=== PATIENT | female | born 1945 | race Caucasian/White ===

== ENCOUNTER 2018-06-16 16:39 | Inpatient (IN) | payer MEDICARE ==
[2018-06-16] MEDS ORDERED: MORPHINE SULFATE 4 MG/ML SYRINGE IVP STA (17:24)
--- NOTE | 2018-06-16 17:37 | ED ---
General Adult HPI <Cj Goldstein - Last Filed: 06/16/18 19:06> - General Source: patient, EMS, RN notes reviewed Mode of arrival: EMS Limitations: no limitations <Eliud Farah - Last Filed: 06/16/18 19:50> - General Chief complaint: Extremity Injury, Lower Stated complaint: FALL Time Seen by Provider: 06/16/18 16:41 - History of Present Illness Initial comments: With a past medical history of asthma, right hip fracture, right bundle branch block presents to the emergency department for a chief complaint of left hip pain 1 hour. Patient states she was walking her dog when her dog took off after another dog. She states she was pulled down onto her left side. Patient states she immediately felt pain in the left hip. She states she is unable to move the hip. She was unable to ambulate.Patient has no other complaints at this time including shortness of breath, chest pain, abdominal pain, nausea or vomiting, headache, or visual changes. (Eliud Farah) - Related Data Home Medications Medication Instructions Recorded Confirmed Ibuprofen [Motrin] 600 mg PO DAILY PRN 01/11/15 06/16/18 Multivitamins, Thera [Multivitamin 1 tab PO DAILY 01/11/15 06/16/18 (formulary)] Pseudoephedrine HCl [Sudafed] 30 mg PO DAILY 06/16/18 06/16/18 Allergies Allergy/AdvReac Type Severity Reaction Status Date / Time levofloxacin [From Levaquin] Allergy Itching Verified 06/16/18 17:05 Penicillins Allergy Swelling Verified 06/16/18 17:05 Sulfa (Sulfonamide Allergy Itching Verified 06/16/18 17:05 Antibiotics) Review of Systems ROS Other: All systems not noted in ROS Statement are negative. <Cj Goldstein - Last Filed: 06/16/18 19:06> ROS Other: All systems not noted in ROS Statement are negative. <Eliud Farah - Last Filed: 06/16/18 19:50> ROS Statement: Those systems with pertinent positive or pertinent negative responses have been documented in the HPI. Past Medical History Past Medical History: Asthma, Osteoarthritis (OA), Pneumonia Additional Past Medical History / Comment(s): ECZEMA, RT HIP FX, SCIATICA, HAYFEVER, MONO 1964, HEMRRHOIDS, Right bundle branch block History of Any Multi-Drug Resistant Organisms: None Reported Past Surgical History: Hernia Repair, Tonsillectomy Additional Past Surgical History / Comment(s): 5 surgeries on right eye( CATARACT AND MACULAR HOLE/DETATCHED RETINA), right hip RECONSTRUCTION W/ PINS , D&C, COLONOSCOPY IN 2006 [email or web address] INGUINAL HERNIA REPAIR/ Past Anesthesia/Blood Transfusion Reactions: No Reported Reaction Past Psychological History: No Psychological Hx Reported Smoking Status: Former smoker Past Alcohol Use History: Occasional Past Drug Use History: None Reported - Past Family History Father Additional Family Medical History / Comment(s): RENAL CELL CA Mother Additional Family Medical History / Comment(s): VASCULAR PROBLEMS <Eliud Farah P - Last Filed: 06/16/18 19:50> General Exam Limitations: no limitations General appearance: alert, in no apparent distress Head exam: Present: atraumatic, normocephalic, normal inspection Eye exam: Present: normal appearance, PERRL, EOMI. Absent: scleral icterus, conjunctival injection, periorbital swelling ENT exam: Present: normal exam, mucous membranes moist Neck exam: Present: normal inspection, full ROM. Absent: tenderness, meningismus, lymphadenopathy Respiratory exam: Present: normal lung sounds bilaterally. Absent: respiratory distress, wheezes, rales, rhonchi, stridor Cardiovascular Exam: Present: regular rate, normal rhythm, normal heart sounds. Absent: systolic murmur, diastolic murmur, rubs, gallop, clicks Extremities exam: Present: tenderness (Mild tenderness noted to the lateral left hip), normal capillary refill (Abler refill less than 2 seconds and DP pulse 2+ in the left lower extremity), other (The patient intact in the left lower extremity, deformity noted to the left lateral hip. external rotation of left leg noted). Absent: full ROM (Unable to move left hip) <Eliud Farah - Last Filed: 06/16/18 19:50> Course <Cj Goldstein - Last Filed: 06/16/18 19:06> <Eliud Farah P - Last Filed: 06/16/18 19:50> Vital Signs 06/16/18 06/16/18 06/16/18 16:48 18:00 19:07 Temperature 98.8 F Pulse Rate 69 84 Respiratory 20 18 18 Rate Blood Pressure 141/104 133/73 130/80 O2 Sat by Pulse 97 96 97 Oximetry - Reevaluation(s) Reevaluation #1: 06/16/18 19:06 Patient reevaluated by myself, Dr. Goldstein. Patient states she was walking results which is pulled down and landed on her left hip. Patient states she is normally healthy. Patient is updated on results and plan. Distally extremities are neurovascularly intact. Pulses intact. Case was discussed in detail with Dr. Foster, who will admit with likely surgical repair on Thursday. ( Cj Goldstein) EKG Findings - EKG Comments: EKG Findings:: EKG shows a normal sinus rhythm, ventricular rate 60, MT interval 156, QTC 438, evidence of right bundle-branch block which is chronic. <Eliud Farah - Last Filed: 06/16/18 19:50> Medical Decision Making - Lab Data Result diagrams: 06/16/18 17:54 06/16/18 17:54 <Cj Goldstein - Last Filed: 06/16/18 19:06> - Lab Data Result diagrams: 06/16/18 17:54 06/16/18 17:54 <Eliud Farah - Last Filed: 06/16/18 19:50> - Medical Decision Making 72-year-old female brought to the emergency department for a chief complaint of left hip pain after falling today. Patient states she cannot move the hip nor bear weight on it. Patient initially hypertensive on presentation although after pain controlled with pressure 130/80. On exam patient refuses to move hip. She does have a deformity noted. External rotation noted to the lower extremity. Tenderness to the lateral hip. Neurovascular intact with capillary refill less than 2 seconds in DP pulse 2+ the left lower extremity. Basic labs were ordered. CBC and CMP are unremarkable. EKG shows a right bundle branch block which is chronic. X-ray of the left hip shows an acute intertrochanteric fracture with mild coccyx severity deformity. Chest x-ray shows no active cardiopulmonary disease. Patient's pain currently controlled with morphine and Dilaudid. Dilaudid will be continued on the floor. Patient will be admitted to [facility] who accepts the admission. Medicine will be consulted. (Eliud Farah) - Lab Data Lab Results 06/16/18 06/16/18 Range/Units 17:54 17:54 WBC 8.0 (3.8-10.6) k/uL RBC 4.16 (3.80-5.40) m/uL Hgb 13.3 (11.4-16.0) gm/dL Hct 40.0 (34.0-46.0) % MCV 96.1 (80.0-100.0) fL MCH 32.0 (25.0-35.0) pg MCHC 33.3 (31.0-37.0) g/dL RDW 12.3 (11.5-15.5) % Plt Count 212 (150-450) k/uL Neutrophils % 81 % Lymphocytes % 13 % Monocytes % 3 % Eosinophils % 2 % Basophils % 1 % Neutrophils # 6.4 (1.3-7.7) k/uL Lymphocytes # 1.0 (1.0-4.8) k/uL Monocytes # 0.3 (0-1.0) k/uL Eosinophils # 0.1 (0-0.7) k/uL Basophils # 0.1 (0-0.2) k/uL Sodium 142 (137-145) mmol/L Potassium 4.1 (3.5-5.1) mmol/L Chloride 108 H (98-107) mmol/L Carbon Dioxide 26 (22-30) mmol/L Anion Gap 8 mmol/L BUN 25 H (7-17) mg/dL Creatinine 0.77 (0.52-1.04) mg/dL Est GFR (CKD-EPI)AfAm 90 (>60 ml/min/1.73 sqM) Est GFR (CKD-EPI)NonAf 78 (>60 ml/min/1.73 sqM) Glucose 107 H (74-99) mg/dL Calcium 9.2 (8.4-10.2) mg/dL Total Bilirubin 0.5 (0.2-1.3) mg/dL AST 28 (14-36) U/L ALT 32 (9-52) U/L Alkaline Phosphatase 52 (38-126) U/L Total Protein 6.4 (6.3-8.2) g/dL Albumin 3.9 (3.5-5.0) g/dL Disposition <Cj Goldstein - Last Filed: 12/05/18 19:06> Is patient prescribed a controlled substance at d/c from ED?: No Time of Disposition: 19:35 <Eliud Farah P - Last Filed: 06/16/18 19:50> Clinical Impression: Hip fracture, left Disposition: ADMITTED IP TO THIS HOSP Condition: Good
[2018-06-16 18:10] LABS: Basophils # (A) 0.1 k/uL (0-0.2); Basophils % (A) 1 %; Eosinophils # (A) 0.1 k/uL (0-0.7); Eosinophils % (A) 2 %; HGB 13.3 gm/dL (11.4-16.0); Lymphocytes % (A) 13 %; MCHC 33.3 g/dL (31.0-37.0); MCV 96.1 fL (80.0-100.0); Mean Platelet Volume 7.5; Monocytes # (A) 0.3 k/uL (0-1.0); Monocytes % (A) 3 %; Neutrophils # (A) 6.4 k/uL (1.3-7.7); Neutrophils % (A) 81 %; Platelet Count 212 k/uL (150-450); RBC 4.16 m/uL (3.80-5.40); RDW 12.3 % (11.5-15.5)
[2018-06-16 18:20] LABS: Albumin 3.9 g/dL (3.5-5.0); Calcium 9.2 mg/dL (8.4-10.2); Potassium 4.1 mmol/L (3.5-5.1); Total Bilirubin 0.5 mg/dL (0.2-1.3); Total Protein 6.4 g/dL (6.3-8.2)
[2018-06-16] MEDS ORDERED: HYDROmorphone 1 MG/ML 1 ML SYRINGE IVP STA (18:45)
[2018-06-16] MEDS ORDERED: ACETAMINOPHEN TAB 325 MG TAB PO PRN (19:36)
[2018-06-16] MEDS ORDERED: NALOXONE 0.4 MG/ML 1 ML VIAL IV PRN (19:36)
[2018-06-16] MEDS ORDERED: SODIUM CHLORIDE 0.9% 1,000 ML IV STA (19:40)
--- NOTE | 2018-06-16 19:40 | XR ---
EXAMINATION TYPE: XR Hip LT and AP Pelvis DATE OF EXAM: 06/16/2018 COMPARISON: NONE HISTORY: Hip pain TECHNIQUE: A single AP view of the pelvis is obtained. Two views of the left hip are obtained. FINDINGS: The of the great is intact. There is a right hip nailing noted. There is an acute intertroc hanteric fracture of the left femur with mild coxa vera deformity. There is no dislocation. IMPRESSION: Acute intertrochanteric fracture left femur.
--- NOTE | 2018-06-16 19:41 | XR ---
EXAMINATION TYPE: XR chest 1V DATE OF EXAM: 06/16/2018 COMPARISON: 01/17/2015 HISTORY: Chest pain TECHNIQUE: Single frontal view of the chest is obtained. FINDINGS: There is no heart failure nor confluent pneumonic infiltrate. Costophrenic angles are mynor r. Bony thorax is intact. Heart size is fairly normal. IMPRESSION: No active cardiopulmonary disease. Normal heart. No change.
[2018-06-16] MEDS: HYDROmorphone 1 MG/ML 1 ML SYRINGE IVP PRN (22:21)
--- NOTE | 2018-06-16 23:45 | CONS ---
CONSULTATION DATE OF CONSULTATION: 06/16/2018 REASON FOR CONSULTATION: Medical management, requested by Dr. Foster. CONSULTATION: This is a very pleasant 72-year-old patient of Dr. Burgos. Chronic stable medical conditions include right bundle branch block, osteoarthritis, asthma and sciatica. The patient was walking her dog when the dog suddenly decided to dart off. As a result, the patient fell on her left hip, had pain immediately. She was brought into the ER and was confirmed to have a left hip fracture. Patient is otherwise in good health, rather active. The patient did have a cardiac catheterization back in 2014 that was negative for coronary artery disease. No chest pain or shortness of breath. Really otherwise healthy. Lying in bed. Some pain in the left hip. REVIEW OF SYSTEMS: CONSTITUTIONAL: None. HEENT: None. RESPIRATORY: None. CARDIOVASCULAR: None. GASTROINTESTINAL: None. GENITOURINARY: None. MUSCULOSKELETAL: Pain in the left hip and other joints. DERMATOLOGICAL: None. HEMATOLOGIC: None. LYMPHATIC: None. PSYCHIATRY: None. NEUROLOGICAL: None. PAST MEDICAL HISTORY: 1. Asthma. 2. Osteoarthritis. 3. Eczema. 4. Infectious mononucleosis. 5. Hemorrhoids. 6. Right bundle branch block. PAST SURGICAL HISTORY: 1. Hernia repair. 2. Tonsillectomy. 3. Surgeries in the right eye for a cataract and macular hole, detached retina. 4. Right hip reconstruction with pins. 5. Left inguinal hernia repair. SOCIAL HISTORY: No smoking. Occasional alcohol. . 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 FAMILY HISTORY: Renal cell carcinoma. HOME MEDICATIONS: 1. Sudafed 30 mg a day. 2. Multivitamin tablet 1 p.o. daily. 3. Motrin 600 mg daily p.r.n. ALLERGIES: 1. LEVAQUIN. 2. PENICILLIN. 3. SULFA. PHYSICAL EXAMINATION: Temperature 98.4, pulse 64, respiration 12, blood pressure 124/72, pulse ox 96% on room air. GENERAL APPEARANCE: Average build. Lying in bed, comfortable. EYES: Pupils equal. Conjunctivae normal. HEENT: External appearance of nose and ears normal. Oral cavity normal. NECK: JVD not raised. Mass not palpable. RESPIRATORY: Effort normal. Lungs are clear. CARDIOVASCULAR: First and second sounds normal. No edema. ABDOMEN: Soft, non-tender. Liver and spleen not palpable. LYMPHATIC: No lymph node palpable in neck or axillae. PSYCHIATRY: Alert and oriented x3. Mood and affect normal. NEUROLOGICAL: Pupils equal. Cranial nerves grossly intact. Power and sensation grossly intact. MUSCULOSKELETAL: Evidence of osteoarthritis, especially in the hands. Limited range of motion of the left hip. INVESTIGATIONS: White count 8, hemoglobin 13.3, potassium 4.1, BUN 25, creatinine 0.77. EKG tracing, personally reviewed by me, shows right bundle branch block. Chest x-ray film, personally reviewed by me, shows some hyperinflation; no obvious infiltrate. Also the report was reviewed. Hip/pelvic x-ray shows left femur IT fracture. ASSESSMENT: 1. Left femur intertrochanteric fracture secondary to fall. 2. Intermittent asthma, stable. 3. Primary osteoarthritis in multiple joints, stable. 4. Chronic right bundle branch block. 5. Chronic sciatica. PLAN: From a cardiovascular standpoint, patient has good exercise tolerance; negative cardiac cath in 2015. Not much change in exercise tolerance. Has no chest pain or shortness of breath. Has a low risk for surgery. Will give patient Lovenox for DVT prophylaxis. Care was discussed with the patient. Questions were answered. Thank you, Dr. Foster. MMARTUROL / IJN: [id number] /
[2018-06-17] MEDS: HYDROmorphone 1 MG/ML 1 ML SYRINGE IVP PRN ×6 (02:35→23:07)
[2018-06-17] MEDS: ENOXAPARIN 40 MG/0.4 ML SYRINGE SQ SCH (08:39)
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
[2018-06-17] MEDS ORDERED: HYDROmorphone 1 MG/ML 1 ML SYRINGE IVP PRN ×2 (13:10→14:36)
[2018-06-17] MEDS: HYDROcodone/APAP 5-325MG 1 EACH TAB PO PRN ×2 (13:17→20:10)
--- NOTE | 2018-06-17 22:23 | PN ---
PROGRESS NOTE DATE OF SERVICE: 06/17/2018 PRESENTING COMPLAINT: Left femur fracture. INTERVAL HISTORY: This is a patient with left femur fracture secondary to a fall. Pain is controlled. Awaiting surgery. No new issues. Breathing is stable. Lying in bed. REVIEW OF SYSTEMS: Done for constitutional, cardiovascular, GI, pulmonary, musculoskeletal; relevant findings as above. CURRENT MEDICATIONS: Reviewed. PHYSICAL EXAMINATION: Temperature 98.3, pulse 60, respiration 16, blood pressure 107/64, pulse ox 96% on room air. GENERAL APPEARANCE: Lying in bed, comfortable. EYES: Pupils equal. Conjunctivae normal. NECK: JVD not raised. Mass not palpable. RESPIRATORY: Effort normal. Lungs are clear. CARDIOVASCULAR: First and second sounds normal. No edema. ABDOMEN: Soft, non-tender. Liver and spleen not palpable. PSYCHIATRY: Alert and oriented x3. Mood and affect normal. INVESTIGATIONS: No blood work from today. ASSESSMENT: 1. Left femur intertrochanteric fracture secondary to fall. 2. Intermittent asthma, stable. 3. Primary osteoarthritis of multiple joints, stable. 4. Right bundle branch block. 5. Chronic sciatica. PLAN: Care was discussed with the patient. Patient is medically stable to proceed with surgery. Will follow. MMODL / IJN: [id number] /
[2018-06-18] MEDS: HYDROmorphone 1 MG/ML 1 ML SYRINGE IVP PRN ×4 (04:11→21:07)
[2018-06-18] MEDS: HYDROcodone/APAP 5-325MG 1 EACH TAB PO PRN ×2 (07:42→18:12)
[2018-06-18] MEDS: ENOXAPARIN 40 MG/0.4 ML SYRINGE SQ SCH (07:43)
[2018-06-18] MEDS ORDERED: IV FLUID CONTINUATION 800 ML IV ONE (10:48)
[2018-06-18] MEDS ORDERED: ceFAZolin IN SWFI 2 GM/20 ML SYRINGE IVP ONE (11:00)
[2018-06-18] MEDS ORDERED: ceFAZolin 2 GM in SODIUM CHLORIDE 0.9% 100 ML IVPB ONE (11:00)
[2018-06-18] MEDS ORDERED: MIDAZOLAM 2 MG/2 ML VIAL ONE (12:15)
[2018-06-18] MEDS ORDERED: fentaNYL (PF) 50 MCG/ML 2 ML AMP ONE (12:15)
[2018-06-18] MEDS ORDERED: ePHEDrine SULFATE/0.9% NACL/PF 50 MG/5 ML SYRINGE IV ONE (12:15)
[2018-06-18] MEDS ORDERED: KETAMINE 10 MG/ML 20 ML VIAL ONE (12:15)
[2018-06-18] MEDS ORDERED: CLINDAMYCIN 600 MG in SODIUM CHLORIDE 0.9% 1,000 ML IRRIGATION ONE (12:56)
--- NOTE | 2018-06-18 13:23 | P.OP ---
Date of Procedure: 06/18/18 Procedure(s) Performed: PREOPERATIVE DIAGNOSIS: Left hip intertrochanteric fracture. POSTOPERATIVE DIAGNOSIS: Left hip intertrochanteric fracture. OPERATION: Left hip intertrochanteric fracture closed reduction and intramedullary nailing using Synthes IT nail. GARMENT TAG STRINGER: Sydnie Marion (Assistance with: Patient positioning, retraction, exposure, hemostasis, fixation, irrigation, closure, dressing) ANESTHESIA: Spinal ESTIMATED BLOOD LOSS: 50 mL. COMPLICATIONS: None OPERATIVE FINDINGS: See dictation INDICATIONS: Mrs. Goldstein is a 72-year-old female with a history of left intertrochanteric fracture. The patient presents to the operating room today for closed reduction and intramedullary nailing. I discussed the risks of surgery in detail as being inclusive of but not limited to: Bleeding, infection , scarring, discomfort, blood vessel and/or nerve damage, need for further surgery, malunion, nonunion, gait disturbance including persistent or permanent limp, limb length inequality, arthritis, hardware failure, blood clot, pulmonary embolism, , and other risks. The consent form has been signed. PROCEDURE: After appropriate consent was obtained, the patient was taken to the operating room and placed in supine position. Spinal anesthetic was administered and after confirmation of adequate anesthesia, the patient was carefully placed in the supine position on the operating room table in the fracture table. The patient was placed up against a well-padded peroneal post. Care was taken to make sure about that all pressure points were adequately padded. The affected leg was placed in boot traction and the unaffected leg was placed in a well leg baeza. Using gentle longitudinal distraction as well as adduction and internal rotation, the fracture was reduced as assessed by AP and lateral C-arm imaging. Once a satisfactory reduction had been obtained, the thigh was prepped and draped in the usual aseptic fashion using ChloraPrep. Ioban drape was used for the case and the patient received intravenous antibiotics prior to incision. Timeout was called, confirming patient identity, side, procedure, and administration of antibiotics. The incision was then created with a #10 blade just proximal to the greater trochanter laterally. It was carried down through skin into the subcutaneous tissues and through fascia. Hemostasis was obtained using electrocautery. The tip of the greater trochanter was palpated and a guide pin was placed at the tip and directed into the femoral shaft as assessed with C-arm imaging. Once optimal pin position had been obtained, a 17 mm reamer was used over the guide pin to create a path for the IT nail. IT nail selected was assembled to the insertion jig on the back table and bushings were checked for accuracy. The nail was then inserted using gentle mallet taps until it was fully deployed. The amount of rotation of the implant was assessed based on the amount of anteversion of the femoral neck. This was rotated to match the patient's femoral neck anteversion and the helical blade guide was placed through the insertion jig and through an incision on the lateral side of the thigh more distal than the first. Once this guide was placed against the lateral cortex of the femur, a guide pin was drilled into the central region of the femoral head and neck as based on AP and lateral C-arm imaging. Once optimal pin position had been obtained, the guidewire was measured and appropriately sized helical blade was selected. The path for the helical blade was prepared using a tapered reamer. The helical blade was then inserted using gentle mallet taps along the guidewire until it was fully deployed. There was no displacement of the fracture during this step. The anti-rotation screw was locked down and the insertion apparatus for the helical blade was removed. The guide pin was then removed. Traction was then removed from the leg and the distal interlock was placed through the jig using standard technique. Finally, the insertion jig for the nail was removed and final C-arm images were taken and saved in both AP and lateral planes. The final x-rays showed satisfactory positioning of the implant and good reduction of the fracture. The top of the nail was plugged with a small quantity of bone wax and the incisions were then thoroughly irrigated with normal saline. Final hemostasis was obtained using electrocautery and closure of the fascia was performed using 0-Vicryl suture. 2-0 Vicryl suture was used in the subcutaneous tissues and michelle were used for the skin. Sterile dressing was then applied and the patient was carefully removed from the fracture table frame and placed onto the stretcher. The patient tolerated the procedure well. There were no complications and 50 of blood loss. The patient was then subsequently transferred to recovery room in stable condition. Sponge and needle counts were correct.
[2018-06-18] MEDS ORDERED: NALOXONE 0.4 MG/ML 1 ML VIAL IV PRN (13:49)
[2018-06-18] MEDS ORDERED: HYDROmorphone 1 MG/ML 1 ML SYRINGE IVP PRN ×3 (13:49)
[2018-06-18] MEDS ORDERED: HYDROcodone/APAP 5-325MG 1 EACH TAB PO PRN (13:49)
[2018-06-18] MEDS ORDERED: MAGNESIUM HYDROXIDE 2,400 MG/10 ML CUP PO PRN (13:49)
[2018-06-18] MEDS ORDERED: ONDANSETRON 4 MG/2 ML VIAL IVP PRN (13:49)
--- NOTE | 2018-06-18 14:15 | XR ---
EXAMINATION TYPE: XR shoulder limited LT DATE OF EXAM: 06/18/2018 CLINICAL HISTORY: Left shoulder pain after injury TECHNIQUE: 2 views of the left shoulder are obtained. COMPARISON: None. FINDINGS: There is mild generalized osseous mineralization. There is no acute fracture/dislocation e vident in the left shoulder. The acromioclavicular and glenohumeral joint spaces demonstrate mild ar thropathy of both joints. The visualized ribs are intact and unremarkable. IMPRESSION: There is no acute fracture or dislocation in the left shoulder.
--- NOTE | 2018-06-18 14:26 | XR ---
EXAMINATION TYPE: XR Hip Complete LT DATE OF EXAM: 06/18/2018 COMPARISON: NONE HISTORY: Postsurgical TECHNIQUE: One view submitted. FINDINGS: There is postsurgical change in near anatomic alignment. There is soft tissue edema and emphysema. IMPRESSION: 1. Postoperative change. Appears in near-anatomic alignment.
[2018-06-18] MEDS: LACTATED RINGERS 1,000 ML IV SCH (14:37)
--- NOTE | 2018-06-18 14:40 | FL ---
EXAMINATION TYPE: FL guidance operating room DATE OF EXAM: 06/18/2018 HISTORY: Flouroscopy time 23 seconds of fluoroscopy provided. IMPRESSION: 1. Fluoroscopy time.
[2018-06-18 16:28] LABS: Basophils % (A) 0 %; Eosinophils # (A) 0.1 k/uL (0-0.7); Eosinophils % (A) 1 %; HCT 38.3 % (34.0-46.0); HGB 12.6 gm/dL (11.4-16.0); Lymphocytes # (A) 1.1 k/uL (1.0-4.8); Lymphocytes % (A) 13 %; MCH 32.2 pg (25.0-35.0); MCHC 32.8 g/dL (31.0-37.0); MCV 98.1 fL (80.0-100.0); Mean Platelet Volume 7.4; Monocytes # (A) 0.4 k/uL (0-1.0); Monocytes % (A) 5 %; Neutrophils # (A) 6.9 k/uL (1.3-7.7); Neutrophils % (A) 80 %; Platelet Count 173 k/uL (150-450); RDW 12.2 % (11.5-15.5); WBC 8.6 k/uL (3.8-10.6)
[2018-06-18] MEDS: SENNOSIDES-DOCUSATE SODIUM 1 EACH TAB PO SCH (21:04)
[2018-06-18] MEDS: ceFAZolin IN SWFI 2 GM/20 ML SYRINGE IVP SCH (21:25)
[2018-06-18] MEDS ORDERED: TEMAZEPAM 15 MG CAP PO PRN (22:00)
[2018-06-19] MEDS: HYDROcodone/APAP 5-325MG 1 EACH TAB PO PRN ×4 (00:24→20:21)
[2018-06-19] MEDS: LACTATED RINGERS 1,000 ML IV SCH ×3 (00:26→21:46)
--- NOTE | 2018-06-19 00:27 | PN ---
PROGRESS NOTE DATE OF SERVICE: 06/18/2018 PRESENTING COMPLAINT: Left femur fracture. INTERVAL HISTORY: The patient with a fall with left femur fracture, underwent IM nailing today. Post procedure some pain is present. No nausea, vomiting. Lying in bed. Did have a light meal. No chest pain or short of breath. REVIEW OF SYSTEMS: Done for constitutional, cardiovascular, GI, pulmonary, musculoskeletal and relevant findings as above. CURRENT MEDICATIONS: Reviewed that include IV Ancef, lactated Ringer's, Xarelto. PHYSICAL EXAMINATION: VITAL SIGNS: Temperature 98.7, pulse 72, respirations 16, blood pressure 125/73, pulse ox 99 percent on room air. GENERAL APPEARANCE: Lying in bed, tired. EYES: Pupils equal. Conjunctivae normal. NECK: JVD not raised. Mass not palpable. RESPIRATORY: Effort normal. LUNGS are clear. CARDIOVASCULAR: 1st and 2nd sounds normal. No edema. ABDOMEN: Soft, nontender. Liver and spleen not palpable. PSYCHIATRY: Alert and oriented times three. Mood and affect normal. Dressing over the left hip. INVESTIGATIONS: White count 8.6, hemoglobin 12.6. ASSESSMENT: 1. Left femur IT fracture secondary to fall followed by IM nailing. 2. Intermittent asthma, stable. 3. Primary osteoarthritis, multiple joints, stable. 4. Right bundle branch block. 5. Chronic sciatica. PLAN: The patient is on Xarelto for DVT prophylaxis, IV fluids. Other medications to continue. Care was discussed with the patient. Thank you Dr. Foster. MMODL / IJN: [id number] /
[2018-06-19] MEDS: HYDROmorphone 1 MG/ML 1 ML SYRINGE IVP PRN ×4 (02:27→21:38)
[2018-06-19] MEDS: ceFAZolin IN SWFI 2 GM/20 ML SYRINGE IVP SCH (05:40)
--- NOTE | 2018-06-19 09:45 | P.PN ---
Subjective Progress Note Date: 06/19/18 Principal diagnosis: Status post IT nail left hip This is a 72 year-old female post left hip IT nail. This is post-op day 1. The patient was evaluated at the bedside today. The patient denies nausea, vomiting, abdominal pain, shortness of breath, and chest pain this morning. She states her pain is controlled at this time. The patient has not been up with physical therapy. Objective - Vital Signs Vital signs: Vital Signs Temp 98.4 F 06/19/18 08:26 Pulse 79 06/19/18 08:26 Resp 16 06/19/18 08:26 BP 105/66 06/19/18 08:26 Pulse Ox 96 06/19/18 08:26 Intake & Output 06/18/18 06/19/18 06/19/18 18:59 06:59 18:59 Intake Total 1021 1600 222 Output Total 600 1700 Balance 421 -100 222 Intake: IV 701 Intake, IV Titration 1600 Amount Lactated Ringers 1,000 ml 1600 @ 100 mls/hr IV .Q10H [facility] Rx#:[id number] Oral 320 222 Output: Urine 550 1700 Estimated Blood Loss 50 Other: Voiding Method Indwelling Catheter Indwelling Catheter - Exam The patient does not appear in acute distress. Alert and orientated x3. Dressing is clean dry and intact. Incision appears fine with no erythema or active drainage. Calf is soft and nontender. Good foot and ankle motion without difficulty. Sensation and circulatory status is intact. - Labs CBC & Chem 7: 06/18/18 16:10 06/16/18 17:54 Assessment and Plan (1) Status post hip surgery Current Visit: Yes Status: Acute Code(s): Z98.890 - OTHER SPECIFIED POSTPROCEDURAL STATES SNOMED Code(s): 938487357 (2) Intertrochanteric fracture of left hip Current Visit: Yes Status: Acute Code(s): S72.142A - DISPLACED INTERTROCHANTERIC FRACTURE OF LEFT FEMUR, INIT SNOMED Code(s): 457833239 (3) Status post fall Current Visit: Yes Status: Acute Code(s): Z91.81 - HISTORY OF FALLING SNOMED Code(s): 864790826 Plan: 1. Continue pain control 2. Anticoagulation with Xarelto 3. Start physical therapy and ambulation 4. Anticipate discharge home in the next 1-2 days depending on ambulation status.
[2018-06-19] MEDS: RIVAROXABAN 10 MG TAB PO SCH (10:01)
[2018-06-19] MEDS ORDERED: POLYETHYLENE GLYCOL 3350 17 GM POWD.PACK PO PRN (11:42)
--- NOTE | 2018-06-19 12:43 | P.PN ---
Subjective Progress Note Date: 06/19/18 Principal diagnosis: Left femur fracture Mr. Goldstein is a 72-year-old female with the past medical history of asthma, osteoarthritis, chronic sciatica admitted for left femur fracture after having a fall. Patient went IM nailing done yesterday. And she is postop day 1 today. Patient is lying in bed comfortably. No acute overnight events reported by nursing staff. On review of systems- Constitutional - denies having any fevers chills or rigors Cardiovascular - no chest pain or palpitations Respiratory - no difficulty in breathing or cough GI - reports constipation, she did not have a bowel movement for the past 4 days - patient still has Ontiveros's catheter in place Objective - Vital Signs Vital signs: Vital Signs Temp 98.4 F 06/19/18 08:26 Pulse 79 06/19/18 08:26 Resp 16 06/19/18 08:26 BP 105/66 06/19/18 08:26 Pulse Ox 96 06/19/18 08:26 Intake & Output 06/18/18 06/19/18 06/19/18 18:59 06:59 18:59 Intake Total 1021 1600 222 Output Total 600 1700 720 Balance 421 -100 -498 Intake: IV 701 Intake, IV Titration 1600 Amount Lactated Ringers 1,000 ml 1600 @ 100 mls/hr IV .Q10H [facility] Rx#:[id number] Oral 320 222 Output: Urine 550 1700 720 Estimated Blood Loss 50 Other: Voiding Method Indwelling Catheter Indwelling Catheter Indwelling Catheter - Exam Gen. appearance-sitting up in the chair by the bedside Eyes-pupils equal conjunctivae no pallor Neck - no JVD, no palpable masses Respiratory-bilateral breath sounds are positive slightly decreased at the lower lung bases [id number] heard nausea and sounds GI-abdomen is soft, nontender. No organomegaly. Bowel sounds hypoactive. Extremities-no edema - Labs CBC & Chem 7: 06/18/18 16:10 06/16/18 17:54 Assessment and Plan Assessment: ASSESSMENT Left femur fracture-status post IM nailing-postop day 1 Mild intermittent asthma Primary osteoarthritis of multiple joints Right bundle-branch block Chronic sciatica Plan: Patient is undergoing physical therapy as per primary care team management. Pain is under good control with Dilaudid. She is on DVT prophylaxis etc. as the patient has constipation, we will add MiraLAX. Encouraged to continue with incentive spirometry. Thank you Dr. Foster.
[2018-06-19] MEDS: SENNOSIDES-DOCUSATE SODIUM 1 EACH TAB PO SCH (20:23)
[2018-06-20] MEDS: HYDROcodone/APAP 5-325MG 1 EACH TAB PO PRN ×4 (03:52→22:05)
[2018-06-20] MEDS: LACTATED RINGERS 1,000 ML IV SCH ×2 (05:04→19:23)
[2018-06-20 07:25] LABS: Basophils % (A) 0 %; Eosinophils # (A) 0.2 k/uL (0-0.7); Eosinophils % (A) 4 %; HCT 35.7 % (34.0-46.0); HGB 11.8 gm/dL (11.4-16.0); Lymphocytes # (A) 0.8 k/uL (1.0-4.8); Lymphocytes % (A) 14 %; MCH 31.8 pg (25.0-35.0); MCV 96.1 fL (80.0-100.0); Mean Platelet Volume 7.5; Monocytes # (A) 0.4 k/uL (0-1.0); Monocytes % (A) 6 %; Neutrophils # (A) 4.4 k/uL (1.3-7.7); Neutrophils % (A) 74 %; Platelet Count 184 k/uL (150-450); RBC 3.72 m/uL (3.80-5.40); RDW 12.1 % (11.5-15.5)
[2018-06-20] MEDS: RIVAROXABAN 10 MG TAB PO SCH (07:59)
--- NOTE | 2018-06-20 10:54 | P.PN ---
Subjective Progress Note Date: 06/20/18 Principal diagnosis: Status post IT nail left hip This is a 72 year-old female post left hip IT nail. This is post-op day 2. The patient was evaluated at the bedside today. The patient denies nausea, vomiting, abdominal pain, shortness of breath, and chest pain this morning. She states her pain is controlled at this time. The patient has been up with physical therapy. Objective - Vital Signs Vital signs: Vital Signs Temp 98.0 F 06/20/18 08:01 Pulse 79 06/20/18 08:01 Resp 16 06/20/18 08:01 BP 113/69 06/20/18 08:01 Pulse Ox 94 L 06/20/18 08:01 Intake & Output 06/19/18 06/20/18 06/20/18 18:59 06:59 18:59 Intake Total 762 290 Output Total 1395 1900 Balance -633 -1900 290 Intake: Oral 762 290 Output: Urine 1395 1900 Other: Voiding Method Indwelling Catheter Indwelling Catheter Indwelling Catheter # Voids 2 1 # Bowel Movements 1 - Exam The patient does not appear in acute distress. Alert and orientated x3. Dressing is clean dry and intact. Incision appears fine with no erythema or active drainage. Calf is soft and nontender. Good foot and ankle motion without difficulty. Sensation and circulatory status is intact. - Labs CBC & Chem 7: 06/20/18 06:50 06/16/18 17:54 Labs: Abnormal Lab Results - Last 24 Hours (Table) 06/20/18 Range/Units 06:50 RBC 3.72 L (3.80-5.40) m/uL Lymphocytes # 0.8 L (1.0-4.8) k/uL Assessment and Plan (1) Status post hip surgery Current Visit: Yes Status: Acute Code(s): Z98.890 - OTHER SPECIFIED POSTPROCEDURAL STATES SNOMED Code(s): 494217961 (2) Intertrochanteric fracture of left hip Current Visit: Yes Status: Acute Code(s): S72.142A - DISPLACED INTERTROCHANTERIC FRACTURE OF LEFT FEMUR, INIT SNOMED Code(s): 871466255 (3) Status post fall Current Visit: Yes Status: Acute Code(s): Z91.81 - HISTORY OF FALLING SNOMED Code(s): 947651692 Plan: 1. Continue pain control 2. Anticoagulation with Xarelto 3. Continue physical therapy and ambulation 4. Anticipate discharge home with homecare in the next 1-2 days depending on ambulation status.
[2018-06-20] MEDS: HYDROmorphone 1 MG/ML 1 ML SYRINGE IVP PRN (11:32)
--- NOTE | 2018-06-20 15:39 | P.PN ---
Subjective Progress Note Date: 06/20/18 Principal diagnosis: Left femur fracture Mr. Goldstein is a 72-year-old female with the past medical history of asthma, osteoarthritis, chronic sciatica admitted for left femur fracture after having a fall. Patient went IM nailing done yesterday. And she is postop day 2 today. Patient is lying in bed comfortably. On 06/20/18 - No acute overnight events reported by nursing staff. Patient has been out of the bed and has been sitting in the chair for a few hours this morning. She still has some pain/soreness at the surgical site. On review of systems- Constitutional - denies having any fevers chills or rigors Cardiovascular - no chest pain or palpitations Respiratory - no difficulty in breathing or cough GI - patient had a bowel movement this morning. Denies having any abdominal pain nausea vomiting. - Ontiveros's catheter has been removed Objective - Vital Signs Vital signs: Vital Signs Temp 98.0 F 06/20/18 08:01 Pulse 79 06/20/18 08:01 Resp 16 06/20/18 08:01 BP 113/69 06/20/18 08:01 Pulse Ox 94 L 06/20/18 08:01 Intake & Output 06/19/18 06/20/18 06/20/18 18:59 06:59 18:59 Intake Total 762 512 Output Total 1395 1900 Balance -633 -1900 512 Intake: Oral 762 512 Output: Urine 1395 1900 Other: Voiding Method Indwelling Catheter Indwelling Catheter Indwelling Catheter # Voids 2 1 # Bowel Movements 1 - Exam Gen. appearance-sitting up in the chair by the bedside Eyes-pupils equal conjunctivae no pallor Neck - no JVD, no palpable masses Respiratory-bilateral breath sounds are positive slightly decreased at the lower lung bases [id number] heard nausea and sounds GI-abdomen is soft, nontender. No organomegaly. Bowel sounds - normal Extremities-no edema - Labs CBC & Chem 7: 06/20/18 06:50 06/16/18 17:54 Labs: Abnormal Lab Results - Last 24 Hours (Table) 06/20/18 Range/Units 06:50 RBC 3.72 L (3.80-5.40) m/uL Lymphocytes # 0.8 L (1.0-4.8) k/uL Assessment and Plan Assessment: ASSESSMENT Left femur fracture-status post IM nailing-postop day 2 Mild intermittent asthma Primary osteoarthritis of multiple joints Right bundle-branch block Chronic sciatica Plan: Patient is undergoing physical therapy as per primary care team management. Pain is under good control with Dilaudid. She is on DVT prophylaxis. Patient had a bowel movement this morning. Encouraged to continue with incentive spirometry. Thank you Dr. Foster.
[2018-06-20] MEDS: SENNOSIDES-DOCUSATE SODIUM 1 EACH TAB PO SCH (22:04)
[2018-06-21] MEDS: LACTATED RINGERS 1,000 ML IV SCH ×3 (00:06→22:45)
--- NOTE | 2018-06-21 08:05 | P.PN ---
Subjective Progress Note Date: 06/21/18 Principal diagnosis: Intertrochanteric fracture left hip. Status post close reduction and insertion of intertrochanteric nail left hip. This is a 72-year-old female who is status post close reduction and insertion of intertrochanteric nail left hip. She is doing fairly well from an orthopedic standpoint. She does state that she did not have physical therapy over the weekend. She does not feel. He go home today. She states her pain is fairly well controlled. She is able to walk short distances on her own with her walker. Objective - Vital Signs Vital signs: Vital Signs Temp 98.6 F 06/21/18 07:46 Pulse 86 06/21/18 07:46 Resp 18 06/21/18 07:46 BP 115/77 06/21/18 07:46 Pulse Ox 96 06/21/18 00:15 Intake & Output 06/20/18 06/21/18 06/21/18 18:59 06:59 18:59 Intake Total 872 Output Total 400 Balance 872 -400 Intake: Oral 872 Output: Urine 400 Other: Voiding Method Indwelling Catheter # Voids 1 1 # Bowel Movements 1 - Exam This is a pleasant 72-year-old female in no acute distress. She is alert and oriented 3. Exam of the left hip reveals that her dressing is clean, dry and intact. She has full foot and ankle motion without difficulty or pain. Neurovascular status to the lower extremities is intact. - Labs CBC & Chem 7: 06/20/18 06:50 06/16/18 17:54 Assessment and Plan (1) Intertrochanteric fracture of left hip Current Visit: Yes Status: Acute Code(s): S72.142A - DISPLACED INTERTROCHANTERIC FRACTURE OF LEFT FEMUR, INIT SNOMED Code(s): 530519568 (2) Status post fall Current Visit: Yes Status: Acute Code(s): Z91.81 - HISTORY OF FALLING SNOMED Code(s): 953976517 Plan: The clinical findings are discussed with the patient. I reviewed PTs notes. There is only one PT visit since surgery. I will call physical therapy and asked that they get her up twice today. We will plan discharged to home tomorrow.
[2018-06-21] MEDS: HYDROcodone/APAP 5-325MG 1 EACH TAB PO PRN ×3 (08:14→23:37)
[2018-06-21] MEDS: RIVAROXABAN 10 MG TAB PO SCH (08:15)
--- NOTE | 2018-06-21 12:34 | P.PN ---
Subjective Progress Note Date: 06/21/18 Principal diagnosis: Left femur fracture Mr. Goldstein is a 72-year-old female with the past medical history of asthma, osteoarthritis, chronic sciatica admitted for left femur fracture after having a fall. Patient went IM nailing done yesterday. And she is postop day 2 today. Patient is lying in bed comfortably. On 06/21 - No acute overnight events reported by nursing staff. Patient spiked a fever of 100 last night. Patient has been out of the bed and has been sitting in the chair for a few hours this morning. She still has some pain/ soreness at the surgical site. On review of systems- Constitutional - denies having any fevers chills or rigors Cardiovascular - no chest pain or palpitations Respiratory - no difficulty in breathing or cough GI - Denies having any abdominal pain nausea vomiting. - denies having any hematuria or dysuria Objective - Vital Signs Vital signs: Vital Signs Temp 98.6 F 06/21/18 07:46 Pulse 86 06/21/18 07:46 Resp 18 06/21/18 07:46 BP 115/77 06/21/18 07:46 Pulse Ox 96 06/21/18 00:15 Intake & Output 06/20/18 06/21/18 06/21/18 18:59 06:59 18:59 Intake Total 872 Output Total 400 Balance 872 -400 Intake: Oral 872 Output: Urine 400 Other: Voiding Method Indwelling Catheter # Voids 1 1 # Bowel Movements 1 - Exam Gen. appearance-sitting up in the chair by the bedside Eyes-pupils equal conjunctivae no pallor Neck - no JVD, no palpable masses Respiratory-bilateral breath sounds are positive slightly decreased at the lower lung bases [id number] heard nausea and sounds GI-abdomen is soft, nontender. No organomegaly. Bowel sounds - normal Extremities-no edema - Labs CBC & Chem 7: 06/20/18 06:50 06/16/18 17:54 Assessment and Plan Assessment: ASSESSMENT Left femur fracture-status post IM nailing-postop day 2 Mild intermittent asthma Primary osteoarthritis of multiple joints Right bundle-branch block Chronic sciatica Plan: Patient had a fever of 100F last night. Clinically low suspicion for any underlying infection. Patient is undergoing physical therapy as per primary care team management. Pain is under good control with Dilaudid. She is on DVT prophylaxis. Encouraged to continue with incentive spirometry. Thank you Dr. Foster.
[2018-06-21] MEDS: SENNOSIDES-DOCUSATE SODIUM 1 EACH TAB PO SCH (20:14)
[2018-06-22 08:08] VITALS: BP 107/68; PULSE 86; RESP 16; TEMP 98
[2018-06-22] MEDS: LACTATED RINGERS 1,000 ML IV SCH (10:36)
[2018-06-22] MEDS: RIVAROXABAN 10 MG TAB PO SCH (10:40)
[2018-06-22] MEDS: HYDROcodone/APAP 5-325MG 1 EACH TAB PO PRN (10:47)
--- NOTE | 2018-06-22 11:12 | P.DS ---
Providers Date of admission: 06/16/18 19:41 Expected date of discharge: 06/22/18 Attending physician: Elmer Foster Consults: 06/16/18 19:36 Consult Physician Stat Consulting Provider: Baldo Murry Consult Reason/Comments: hip fracture Do you want consulting provider notified?: Yes Primary care physician: Milo Burgos - Discharge Diagnosis(es) (1) Intertrochanteric fracture of left hip Current Visit: Yes Status: Acute (2) Status post fall Current Visit: Yes Status: Acute Hospital Course: This is a 72-year-old female who is admitted to [facility] on 06/16/2018 after falling and sustaining injury to the left hip. On exam and x- ray in the emergency department he is found to have an intertrochanteric fracture of the left He'll left hip. He is admitted to our service for surgical intervention and care. Patient is taken to surgery for close reduction and insertion of intertrochanteric nail of the left hip. The procedure was performed without complication or sequelae. The patient is doing fairly well postoperatively. Vital signs and labs are stable on postoperative day #4. Patient is discharged to inpatient rehab in good condition. Please see med rec for accurate list of discharge medications. Patient Condition at Discharge: Good Plan - Discharge Summary Discharge Rx Participant: Yes New Discharge Prescriptions: New Aspirin [Adult Low Dose Aspirin EC] 81 mg PO DAILY #1 tablet. HYDROcodone/APAP 5-325MG [[place] 5-325] 1 - 2 each PO Q4-6H PRN #50 tab PRN Reason: Pain Rivaroxaban [Xarelto] 10 mg PO DAILY #5 tab Sennosides-Docusate Sodium [Senokot-S] 1 tab PO BID #60 tablet No Action Multivitamins, Thera [Multivitamin (formulary)] 1 tab PO DAILY Ibuprofen [Motrin] 600 mg PO DAILY PRN PRN Reason: Pain Pseudoephedrine HCl [Sudafed] 30 mg PO DAILY Discharge Medication List Ibuprofen [Motrin] 600 mg PO DAILY PRN 01/11/15 [History] Multivitamins, Thera [Multivitamin (formulary)] 1 tab PO DAILY 01/11/15 [History ] Pseudoephedrine HCl [Sudafed] 30 mg PO DAILY 06/16/18 [History] Aspirin [Adult Low Dose Aspirin EC] 81 mg PO DAILY #1 tablet. 06/18/18 [Rx] HYDROcodone/APAP 5-325MG [[place]scoda 5-325] 1 - 2 each PO Q4-6H PRN #50 tab 06/18/18 [Rx] Rivaroxaban [Xarelto] 10 mg PO DAILY #5 tab 06/18/18 [Rx] Sennosides-Docusate Sodium [Senokot-S] 1 tab PO BID #60 tablet 06/18/18 [Rx] Follow up Appointment(s)/Referral(s): Sydnie Marion PAC [PHYSICIAN SADDLE LINING [employer]ITCHER] - 07/15/18 9:30 am Enrique Burgos MD [Primary Care Provider] - 1 Week (office will call with the appointment time) [facility], [NON-STAFF] - Ambulatory/Diagnostic Orders: Walker [DME.AMB1] Location: None Selected Patient Instructions/Handouts: ORIF of a Leg Fracture (DC) Activity/Diet/Wound Care/Special Instructions: Toe-touch weightbearing left lower extremity with walker. May shower if no drainage from incision. Walker - [facility] - [phone] - will deliver to bedside Commode riser with handles for home - Prescription given to patient. Discharge Disposition: HOME WITH HOME HEALTH SERVICES
--- NOTE | 2018-06-22 11:17 | P.PN ---
Progress Note - Text Progress Note Date: 06/22/18 This is an addendum to her discharge summary regarding her commode chair. The patient is floor bound and will require a commode chair for home. The prescription is written and in the chart.
== END 2018-06-22 14:46 | disposition home health service (06) | DRG 482 ==
LOC: EC 16:39 → 4SSUR 19:41
PROVIDERS: ADMIT Orthopaedic Surgery; ATTEND Orthopaedic Surgery
PROC: 0QS736Z Reposition Left Upper Femur with Intramedullary Internal Fixation Device, Percutaneous Approach (ICD-10-PCS; principal; 2018-06-16)
DX: S72.142A Displaced intertrochanteric fracture of left femur, initial encounter for closed fracture (principal); W18.30XA Fall on same level, unspecified, initial encounter; Y93.K1 Activity, walking an animal; I45.10 Unspecified right bundle-branch block; J45.20 Mild intermittent asthma, uncomplicated; K59.00 Constipation, unspecified; M15.9 Polyosteoarthritis, unspecified; M54.30 Sciatica, unspecified side; Z80.51 Family history of malignant neoplasm of kidney; Z87.891 Personal history of nicotine dependence; Z91.81 History of falling; Z98.41 Cataract extraction status, right eye; Z79.1 Long term (current) use of non-steroidal anti-inflammatories (NSAID); Z79.899 Other long term (current) drug therapy; Z88.1 Allergy status to other antibiotic agents; Z88.0 Allergy status to penicillin; Z88.2 Allergy status to sulfonamides
CPT/HCPCS: 36415; 51702; 71045; 73502; 80053; 85025; 93005; 96374; 96375; 99285